=== PATIENT | female | born 1980 | race Caucasian/White ===

== ENCOUNTER 2016-06-06 23:08 | Emergency (ER) | payer SELFPAY ==
[~2016-06-06] VITALS: Ht 167.6 cm; Wt 83.0 kg
[2016-06-06 23:21] VITALS: BP 122/68
[2016-06-06] MEDS ORDERED: DEXAMETHASONE SOD PHOS 20 MG/5 ML VIAL. PO ONE (23:45)
[2016-06-06 23:51] LABS: NEG OBC UR NEG; POS OBC UR POS
[2016-06-06 23:59] LABS: BARBITURATES NEG (NEG); BENZODIAZEPINES NEG (NEG); CANNABINOIDS NEG (NEG); COCAINE NEG (NEG); METHADONE NEG (NEG); OPIATES NEG (NEG); PHENCYCLIDINE NEG (NEG)
[2016-06-07] LABS: ETHANOL, URINE NEG (NEG)
--- NOTE | 2016-06-07 00:11 | PHYS DOC ---
Past Medical History Past Medical History: Other Additional Past Medical Histor: EMPHYSEMA Past Surgical History: Tubal ligation Alcohol Use: Heavy Drug Use: Other Adult General Chief Complaint Chief Complaint: SORE THROAT HPI HPI Patient is a 35 year old female presents emergency room via EMS transport complaint of a sore throat for the past 2 hours. Patient denies injury. Patient denies any exposure to any new substances orally. Patient denies drug ingestion or recent alcohol ingestion. Patient denies any previous surgeries to her throat or problems with anaphylaxis. Patient states that she feels as if her tongue is swollen and she's having a hard time swallowing. She states that she was eating [employer] pizza when the symptoms initially began. Review of Systems Review of Systems Constitutional: Denies fever or chills [] Eyes: Denies change in visual acuity, redness, or eye pain [] HENT: Denies nasal congestion or sore throat [] Respiratory: Denies cough or shortness of breath [] Cardiovascular: No additional information not addressed in HPI [] GI: Denies abdominal pain, nausea, vomiting, bloody stools or diarrhea [] : Denies dysuria or hematuria [] Musculoskeletal: Denies back pain or joint pain [] Integument: Denies rash or skin lesions [] Neurologic: Denies headache, focal weakness or sensory changes [] Endocrine: Denies polyuria or polydipsia [] Current Medications Current Medications Current Medications Medications (Trade) Dose Ordered Sig/Casie Start Time Stop Time Status Last Admin Dose Admin Dexamethasone Sodium Phosphate (Decadron) 10 mg 1X ONCE 06/06/16 23:45 06/06/16 23:46 DC 06/06/16 23:45 10 MG Allergies Allergies Allergies Coded Allergies Type Severity Reaction Last Updated Verified No Known Drug Allergies 06/06/16 No Physical Exam Physical Exam Constitutional: Well developed, well nourished, no acute distress, non-toxic appearance. Patient's behavior is very erratic. She was posturing and squirming around on the examination table with some mild pressured speech but is somewhat nonsensical. She also demonstrates some loose associations with her train of thought in conversation. HENT: Normocephalic, atraumatic, bilateral external ears normal, oropharynx moist, no oral exudates, nose normal. There is no evidence of angioedema. Patient's tongue is not swollen. There is no trismus. Posterior oropharynx is normal in appearance with some mild cobblestoning. There is no peritonsillar swelling or uvular deviation. Patient has ample room air posterior oropharynx to control her secretions. Eyes: PERRLA, EOMI, conjunctiva normal, no discharge. [] Neck: Normal range of motion, no tenderness, supple, no stridor. Cardiovascular:Heart rate 98 with regular rhythm, no murmur. Lungs & Thorax: Bilateral breath sounds clear to auscultation [] Abdomen: Bowel sounds normal, soft, no tenderness, no masses, no pulsatile masses. [] Skin: Warm, dry, no erythema, no rash. [] Back: No tenderness, no CVA tenderness. [] Extremities: No tenderness, no cyanosis, no clubbing, ROM intact, no edema. [] Neurologic: Alert and oriented X 3, normal motor function, normal sensory function, no focal deficits noted. [] Psychologic: Affect normal, judgement normal, mood normal. [] Current Patient Data Vital Signs Vital Signs Date Time Temp Pulse Resp B/P Pulse Ox O2 Delivery O2 Flow Rate FiO2 06/06/16 23:21 97.9 98 18 99 Room Air 97.9 Lab Values Laboratory Tests Test 06/06/16 23:28 06/06/16 23:35 Urine Test Negative (NEG) Urine Opiates Screen Neg (NEG) Urine Methadone Screen Neg (NEG) Urine Barbiturates Neg (NEG) Urine Phencyclidine Screen Neg (NEG) Urine Amphetamine/Methamphetamine Pos (NEG) Urine Benzodiazepines Screen Neg (NEG) Urine Cocaine Screen Neg (NEG) Urine Cannabinoids Screen Neg (NEG) Urine Ethyl Alcohol Neg (NEG) EKG EKG [] Radiology/Procedures Radiology/Procedures [] Course & Med Decision Making Course & Med Decision Making Patient's rapid strep was negative. Patient's urine drug screen was positive for methamphetamines. test is negative. Patient received 10 mg of Decadron by mouth. Patient had slept in the examination room during periods of time similar. I woke the patient up to discuss her test results. Patient states that she had been around "family members or smoking meth" over the holiday season. Patient states that she did smoke meth in the past and absolutely denies methamphetamine use now. Patient was given phone so that she can call someone to get her a ride home, otherwise, she will receive a bus pass for a ride in the morning. Dragon Disclaimer Dragon Disclaimer This electronic medical record was generated, in whole or in part, using a voice recognition dictation system. Departure Departure Impression: Primary Impression: Sore throat Additional Impression: Methamphetamine use Disposition: 01 HOME, SELF-CARE Condition: STABLE Referrals: NO PCP (PCP) Patient Instructions: Methamphetamine Abuse, Complications, Sore Throat, Easy- to-Read Additional Instructions: 1. Strep test today is negative. You did test positive for methamphetamines. 2. No antibiotics are required at this time. 3. Review the discharge instructions for reasons to return to the emergency room. 4. Follow-up with a primary care doctor in the area in which he live if he have any concerns. Problem Qualifiers ASYA VEGA Jun 07, 2016 00:11
[2016-06-07 08:36] LABS: NEGATIVE OBC STREP NEG; POSITIVE OBC STREP POS
== END 2016-06-07 00:42 | disposition home or self-care (01) ==
LOC: ER 23:08
DX: J02.9 Acute pharyngitis, unspecified (principal); J43.9 Emphysema, unspecified; F15.90 Other stimulant use, unspecified, uncomplicated; Z98.51 Tubal ligation status
CPT/HCPCS: 81025; 87070; 87880; 99284; G0481; J1100

== ENCOUNTER 2018-05-01 13:41 | Emergency (ER) | payer SELFPAY ==
[~2018-05-01] VITALS: Ht 170.2 cm; Wt 93.4 kg
[2018-05-01] MEDS ORDERED: IV NORMAL SALINE 1000ML BAG 1,000 ML IV SCH (15:06)
[2018-05-01] MEDS ORDERED: IPRATRPIUM/ALBUTEROL 0.5/2.5MG 3 ML NEBU. NEB ONE (15:15)
[2018-05-01] MEDS ORDERED: IOHEXOL 300 MG/ML 100ML VIAL. IV ONE (15:15)
[2018-05-01 15:25] LABS: BASO % 0 % (0-3); EOS % 0 % (0-3); HEMATOCRIT 44.6 % (36.0-47.0); HEMOGLOBIN 15.2 g/dL (12.0-15.5); LYMPH # 0.9 x10^3/uL (1.0-4.8); LYMPH % 14 % (24-48); MEAN CORPUSCULAR HEMOGLOBIN 31 pg (25-35); MEAN CORPUSCULAR HGB CONC 34 g/dL (31-37); MEAN CORPUSCULAR VOLUME 91 fL (79-100); MONO % 15 % (0-9); NEUT # 4.8 x10^3uL (1.8-7.7); NEUT % 71 % (31-73); PLATELET COUNT 284 x10^3/uL (140-400); RED BLOOD COUNT 4.91 x10^6/uL (3.50-5.40); WHITE BLOOD COUNT 6.8 x10^3/uL (4.0-11.0)
[2018-05-01] MEDS ORDERED: CONTRAST GIVEN. MC PRN (15:30)
--- NOTE | 2018-05-01 15:34 | RAD ---
Portable chest, 05/01/2018: HISTORY: Cough, shortness of breath Comparison is made to a study from 07/11/2003. The left hemidiaphragm is slightly elevated. The heart size and pulmonary vascularity are normal. No pulmonary infiltrate is seen. There is no evidence of pleural fluid. IMPRESSION: 1. Slight elevation of the left hemidiaphragm. 2. No acute infiltrates. Electronically signed by: Gennaro Hernandez MD (05/01/2018 3:31 PM) [facility]
[2018-05-01 15:35] LABS: PROTHROMBIN TIME PATIENT 13.1 SEC (11.7-14.0)
--- NOTE | 2018-05-01 15:37 | PHYS DOC ---
Past Medical History Past Medical History: Asthma, COPD, Other Additional Past Medical Histor: EMPHYSEMA Past Surgical History: Tubal ligation Alcohol Use: Sober Drug Use: Other Social History Narrative: "sober" Adult General Chief Complaint Chief Complaint: SHORTNESS OF BREATH HPI HPI Patient is a 37-year-old female who presents to the emergency department for evaluation of increased shortness of breath. She states it has been going on for the past 2 days. She reports bilateral pleuritic pain, and has had a dry nonproductive cough, worsened with deep breathing. She does have a history of COPD but has not had any wheezing. She has not had any hemoptysis or exertional chest pain, fevers or chills. There are no alleviating or exacerbating factors to the patient's symptoms except as noted above. Review of Systems Review of Systems Constitutional: Denies fever or chills [] Eyes: Denies change in visual acuity, redness, or eye pain [] HENT: Denies nasal congestion or sore throat [] Respiratory: No additional information not addressed in HPI [] Cardiovascular: No additional information not addressed in HPI [] GI: Denies abdominal pain, nausea, vomiting, bloody stools or diarrhea [] : Denies dysuria or hematuria [] Musculoskeletal: Denies back pain or joint pain [] Integument: Denies rash or skin lesions [] Neurologic: Denies headache, focal weakness or sensory changes [] Endocrine: Denies polyuria or polydipsia [] All other systems were reviewed and found to be within normal limits, except as documented in this note. Current Medications Current Medications Current Medications Medications (Trade) Dose Ordered Sig/Casie Start Time Stop Time Status Last Admin Dose Admin Albuterol/ Ipratropium (Duoneb) 3 ml 1X ONCE 05/01/18 15:15 05/01/18 15:16 DC 05/01/18 15:23 3 ML Info (CONTRAST GIVEN -- Rx MONITORING) 1 each PRN DAILY PRN 05/01/18 15:30 05/03/18 15:29 Iohexol (Omnipaque 300 Mg/ml) 75 ml 1X ONCE 05/01/18 15:15 05/01/18 15:16 DC Sodium Chloride 1,000 ml @ 1,000 mls/hr Q1H 05/01/18 15:06 05/01/18 16:05 DC 05/01/18 16:25 1,000 MLS/HR Allergies Allergies Allergies Coded Allergies Type Severity Reaction Last Updated Verified No Known Drug Allergies 06/06/16 No Physical Exam Physical Exam PHYSICAL EXAM: CONSTITUTIONAL: Well developed, well nourished HEAD: normocephalic, atraumatic EENT: PERRL, EOMI. Conjunctivae normal color, sclerae non-icteric; moist mucous membranes. NECK: Supple, non-tender; no meningismus. LUNGS: Lungs CTA, breathing even and unlabored. Normal air movement. HEART: Regular rhythm, mild tachycardia, no murmur CHEST: No deformity; non-tender ABDOMEN: The abdomen is soft, and non-tender, no masses or bruits. EXTREM: Normal ROM; no deformity, no calf tenderness. Normal pulses palpable in all extremities. There is no pedal edema. SKIN: No rash; no diaphoresis NEURO: Alert; normal speech and cognition; CN's grossly intact; strength grossly intact without focal deficit. BACK: No CVA TTP. Current Patient Data Vital Signs Vital Signs Date Time Temp Pulse Resp B/P (MAP) Pulse Ox O2 Delivery O2 Flow Rate FiO2 05/01/18 20:00 92 22 141/93 (109) 98 Room Air 05/01/18 14:20 99.0 99.0 Lab Values Laboratory Tests Test 05/01/18 14:55 05/01/18 15:10 Urine Opiates Screen Neg (NEG) Urine Methadone Screen Neg (NEG) Urine Barbiturates Neg (NEG) Urine Phencyclidine Screen Neg (NEG) Urine Amphetamine/Methamphetamine Neg (NEG) Urine Benzodiazepines Screen Neg (NEG) Urine Cocaine Screen Neg (NEG) Urine Cannabinoids Screen Neg (NEG) Urine Ethyl Alcohol Neg (NEG) White Blood Count 6.8 x10^3/uL (4.0-11.0) Red Blood Count 4.91 x10^6/uL (3.50-5.40) Hemoglobin 15.2 g/dL (12.0-15.5) Hematocrit 44.6 % (36.0-47.0) Mean Corpuscular Volume 91 fL (79-100) Mean Corpuscular Hemoglobin 31 pg (25-35) Mean Corpuscular Hemoglobin Concent 34 g/dL (31-37) Red Cell Distribution Width 13.0 % (11.5-14.5) Platelet Count 284 x10^3/uL (140-400) Neutrophils (%) (Auto) 71 % (31-73) Lymphocytes (%) (Auto) 14 % (24-48) L Monocytes (%) (Auto) 15 % (0-9) H Eosinophils (%) (Auto) 0 % (0-3) Basophils (%) (Auto) 0 % (0-3) Neutrophils # (Auto) 4.8 x10^3uL (1.8-7.7) Lymphocytes # (Auto) 0.9 x10^3/uL (1.0-4.8) L Monocytes # (Auto) 1.0 x10^3/uL (0.0-1.1) Eosinophils # (Auto) 0.0 x10^3/uL (0.0-0.7) Basophils # (Auto) 0.0 x10^3/uL (0.0-0.2) Prothrombin Time 13.1 SEC (11.7-14.0) Prothrombin Time INR 1.0 (0.8-1.1) D-Dimer (Anna) 0.97 ug/mlFEU (0.00-0.50) H Sodium Level 139 mmol/L (136-145) Potassium Level 3.3 mmol/L (3.5-5.1) L Chloride Level 103 mmol/L (98-107) Carbon Dioxide Level 21 mmol/L (21-32) Anion Gap 15 (6-14) H Blood Urea Nitrogen 12 mg/dL (7-20) Creatinine 1.2 mg/dL (0.6-1.0) H Estimated GFR (Cockcroft-Gault) 50.6 BUN/Creatinine Ratio 10 (6-20) Glucose Level 120 mg/dL (70-99) H Calcium Level 9.3 mg/dL (8.5-10.1) Total Bilirubin 0.2 mg/dL (0.2-1.0) Aspartate Amino Transferase (AST) 40 U/L (15-37) H Alanine Aminotransferase (ALT) 28 U/L (14-59) Alkaline Phosphatase 77 U/L (46-116) Creatine Kinase 482 U/L (26-192) H Creatine Kinase MB (Mass) 2.3 ng/mL (0.0-3.6) Creatine Kinase MB Relative Index 0.5 % (0-4) Troponin I Quantitative < 0.017 ng/mL (0.000-0.055) XK-Imb-J-Type Natriuretic Peptide 71 pg/mL (0-124) Total Protein 7.9 g/dL (6.4-8.2) Albumin 3.6 g/dL (3.4-5.0) Albumin/Globulin Ratio 0.8 (1.0-1.7) L Lipase 156 U/L (73-393) Laboratory Tests 05/01/18 15:10 Laboratory Tests 05/01/18 15:10 EKG EKG [Sinus tachycardia rate of 102 beats for minute, normal axis, normal intervals, nonspecific ST/T changes. There are no old EKGs available for comparison.] Radiology/Procedures Radiology/Procedures [PROCEDURE: PORTABLE CHEST 1V Portable chest, 05/01/2018: HISTORY: Cough, shortness of breath Comparison is made to a study from 07/11/2003. The left hemidiaphragm is slightly elevated. The heart size and pulmonary vascularity are normal. No pulmonary infiltrate is seen. There is no evidence of pleural fluid. IMPRESSION: 1. Slight elevation of the left hemidiaphragm. 2. No acute infiltrates.] PROCEDURE: CT ANGIOGRAPHY CHEST PQRS Compliance Statement: One or more of the following individualized dose reduction techniques were utilized for this examination: 1. Automated exposure control 2. Adjustment of the mA and/or kV according to patient size 3. Use of iterative reconstruction technique CT CHEST WITH CONTRAST, PULMONARY ANGIOGRAM History: Shortness of air, suddenly last night. Uncontrolled cough. Comparison: None. Technique: Helical CT of the chest was performed after the administration of 60 cc Omnipaque 300 intravenous contrast according to PE protocol. Axial and coronal reconstructions were obtained. 3-D MIP images were constructed to better evaluate the pulmonary arteries. Findings: Pulmonary arteries are adequately opacified to the lobar pulmonary artery level. There is no evidence of pulmonary embolism. Segmental and subsegmental pulmonary arteries cannot be accurately evaluated. Thyroid is symmetric. There is no thoracic aortic dissection. The great vessels are normal caliber. There are a few tiny bubbles of air right posterior lateral to the upper trachea, for example sagittal image 63 and coronal image 55. There are mildly enlarged left hilar lymph nodes. There are 2 nonpathologically enlarged mediastinal lymph nodes. Cardiac size normal, no pericardial effusion. There is respiratory motion artifact that limits evaluation. There is no pleural abnormality. Central airways are patent. The right lung is clear. There are mild reticular nodular opacities in the left lower lobe. There are a few groundglass nodules in the left lower lobe, for example image 87. No lung consolidation. Calcified granuloma lateral left lower lobe. Calcified granulomas in the spleen. Cortical scarring in the upper poles of the kidneys. No compression fracture in the thoracic spine. Multilevel Schmorl's nodes. IMPRESSION: 1. There is no CT evidence of pulmonary embolus to the lobar pulmonary artery level. 2. There are mild reticular nodular opacities and a few groundglass nodules in the left lower lobe most suggestive of infectious/inflammatory process. 3. Mild left hilar adenopathy is probably reactive. 4. Tiny bubbles of air posterior lateral to the upper trachea. Considerations include unexplained subcutaneous air versus air in a tracheal or esophageal diverticulum. PROCEDURE: LUNG VENT/PERFUSION SCAN(VQ) Medicine ventilation perfusion scan HISTORY: 2 days of dyspnea and a history of COPD and cough 6.0 mCi of technetium 99m MAA was administered intravenously and spot views were obtained with gamma camera for a nuclear medicine perfusion study. 12.0 mCi of xenon and 133 was administered as a gas and spot views were obtained with a gamma camera for a perfusion examination. There is homogeneous ventilation and perfusion. IMPRESSION: Low probability for pulmonary embolism based on modified PIOPED criteria. Electronically signed by: Lalo Santoro III, MD (05/01/2018 9:01 PM) [facility] Course & Med Decision Making Course & Med Decision Making Pertinent Labs and Imaging studies reviewed. (See chart for details) [6:30 PM: The patient's condition remains stable. Given her elevated d-dimer and relatively clear lungs, and tachycardia on presentation, the possibility of pulmonary embolism needs to be definitively ruled out. Unfortunately, her CT scan was nondiagnostic due to poor contrast bolus timing. I did review the images and discussed the case with the radiologist. Given the patient's mildly decreased GFR, was felt that a VQ scan was a better imaging modality for repeat imaging as opposed to a repeat CT endocrine. This will be obtained. Care will be turned over to Dr. Parkinson, pending final disposition after V/Q scanning, which has been requested.] 1830- Sign out received from Dr. Cortes for patient with elevated d-dimer with CTA findings that were inconclusive. EKG stable. Troponin also WNL. Patient pending VQ scan. Patient seen and evaluated by myself. Physical Exam: CONSTITUTIONAL: Well developed, well nourished, no acute distress HEAD: normocephalic, atraumatic EENT: Conjunctivae normal color, oropharynx moist LUNGS: Lungs CTAB, no wheezing rhonchi or rails HEART: Regular rhythm and rate NEURO: Alert and oriented, normal speech 2119- VQ scan low probability for PE. More likely secondary to patient's respiratory issues. Symptomatic steroid and albuterol MDI prescribed. Patient stable for discharge with outpatient follow-up with PCP. Discussed findings and plan with patient and family, who acknowledge understanding and agreement. Dragon Disclaimer Dragon Disclaimer This electronic medical record was generated, in whole or in part, using a voice recognition dictation system. Departure Departure Impression: Primary Impression: Dyspnea Additional Impressions: History of COPD Elevated d-dimer Disposition: HOME, SELF-CARE Condition: STABLE Referrals: NO PCP (PCP) YSABEL ALEJANDRA MD, SABATO MD Patient Instructions: Chest Pain (Nonspecific), Fcav-dy-Torc, Chronic Asthmatic Bronchitis Scripts Albuterol Sulfate (PROAIR HFA INHALER) 8.5 Gm Hfa.aer.ad 1 PUFF INH PRN Q6HRS PRN for SHORTNESS OF BREATH, #1 INHALER 0 Refills Prov: JUANITA PARKINSON DO 05/01/18 Prednisone (PREDNISONE) 20 Mg Tablet 2 TAB PO DAILY, #10 TAB Prov: JUANITA PARKINSON DO 05/01/18 Problem Qualifiers ANNA CORTES MD May 01, 2018 15:37 JUANITA PARKINSON DO May 01, 2018 21:15
[2018-05-01 15:38] LABS: AMPHETAMINE/METHAMPHETAMINE NEG (NEG); BARBITURATES NEG (NEG); BENZODIAZEPINES NEG (NEG); CANNABINOIDS NEG (NEG); COCAINE NEG (NEG); METHADONE NEG (NEG); OPIATES NEG (NEG); PHENCYCLIDINE NEG (NEG)
[2018-05-01 15:41] LABS: CALCIUM 9.3 mg/dL (8.5-10.1); CREATININE 1.2 mg/dL (0.6-1.0); GFR 50.6; POTASSIUM 3.3 mmol/L (3.5-5.1)
[2018-05-01 15:47] LABS: ALBUMIN 3.6 g/dL (3.4-5.0); ALBUMIN/GLOBULIN RATIO 0.8 (1.0-1.7); TOTAL BILIRUBIN 0.2 mg/dL (0.2-1.0); TOTAL PROTEIN 7.9 g/dL (6.4-8.2)
--- NOTE | 2018-05-01 15:58 | EKG ---
[facility] [address] [place] [address] Test Date: 2018-05-01 Test Time: 15:49:25 Pat Name: KRISTAL WHITNEY Department: Room: Gender: F Document Imaging Manager: KRISTAL WHITNEY : 1980 Requested By: ANNA LEA Order Number: [id number] Reading MD: Jose Aguirre MD Measurements Intervals [place] Rate: 102 P: 38 [place]: 124 QRS: 18 QRSD: 72 T: 0 QT: 324 QTc: 426 Interpretive Statements SINUS TACHYCARDIA Electronically Signed On 05-06-2018 8:20:32 TOOLER by Jose Aguirre MD
--- NOTE | 2018-05-01 16:48 | RAD ---
PQRS Compliance Statement: One or more of the following individualized dose reduction techniques were utilized for this examination: 1. Automated exposure control 2. Adjustment of the mA and/or kV according to patient size 3. Use of iterative reconstruction technique CT CHEST WITH CONTRAST, PULMONARY ANGIOGRAM History: Shortness of air, suddenly last night. Uncontrolled cough. Comparison: None. Technique: Helical CT of the chest was performed after the administration of 60 cc Omnipaque 300 intravenous contrast according to PE protocol. Axial and coronal reconstructions were obtained. 3-D MIP images were constructed to better evaluate the pulmonary arteries. Findings: Pulmonary arteries are adequately opacified to the lobar pulmonary artery level. There is no evidence of pulmonary embolism. Segmental and subsegmental pulmonary arteries cannot be accurately evaluated. Thyroid is symmetric. There is no thoracic aortic dissection. The great vessels are normal caliber. There are a few tiny bubbles of air right posterior lateral to the upper trachea, for example sagittal image 63 and coronal image 55. There are mildly enlarged left hilar lymph nodes. There are 2 nonpathologically enlarged mediastinal lymph nodes. Cardiac size normal, no pericardial effusion. There is respiratory motion artifact that limits evaluation. There is no pleural abnormality. Central airways are patent. The right lung is clear. There are mild reticular nodular opacities in the left lower lobe. There are a few groundglass nodules in the left lower lobe, for example image 87. No lung consolidation. Calcified granuloma lateral left lower lobe. Calcified granulomas in the spleen. Cortical scarring in the upper poles of the kidneys. No compression fracture in the thoracic spine. Multilevel Schmorl's nodes. IMPRESSION: 1. There is no CT evidence of pulmonary embolus to the lobar pulmonary artery level. 2. There are mild reticular nodular opacities and a few groundglass nodules in the left lower lobe most suggestive of infectious/inflammatory process. 3. Mild left hilar adenopathy is probably reactive. 4. Tiny bubbles of air posterior lateral to the upper trachea. Considerations include unexplained subcutaneous air versus air in a tracheal or esophageal diverticulum. Electronically signed by: Rich Heaton MD (05/01/2018 4:44 PM) [id number]
[2018-05-01 20:00] VITALS: BP 141/93
--- NOTE | 2018-05-01 21:05 | RAD ---
Medicine ventilation perfusion scan HISTORY: 2 days of dyspnea and a history of COPD and cough 6.0 mCi of technetium 99m MAA was administered intravenously and spot views were obtained with gamma camera for a nuclear medicine perfusion study. 12.0 mCi of xenon and 133 was administered as a gas and spot views were obtained with a gamma camera for a perfusion examination. There is homogeneous ventilation and perfusion. IMPRESSION: Low probability for pulmonary embolism based on modified PIOPED criteria. Electronically signed by: Lalo Santoro III, MD (05/01/2018 9:01 PM) [facility]
[2018-05-01] MEDS ORDERED: PROAIR HFA8.5 GM INH (21:19)
[2018-05-01] MEDS ORDERED: PRED20TA PO (21:19)
== END 2018-05-01 21:40 | disposition home or self-care (01) ==
LOC: ER 13:41
DX: R06.00 Dyspnea, unspecified (principal); R79.1 Abnormal coagulation profile; R06.02 Shortness of breath; R05 Cough; R07.81 Pleurodynia; R00.0 Tachycardia, unspecified; J44.9 Chronic obstructive pulmonary disease, unspecified; Z98.51 Tubal ligation status
CPT/HCPCS: 36415; 71045; 71275; 78582; 80053; 80307; 82553; 83690; 83880; 84484; 85025; 85379; 85610; 93005; 94640; 99284; A9540; A9558; J7030; J7620; 96374

== ENCOUNTER 2018-11-09 17:22 | Emergency (ER) | payer SELFPAY ==
[~2018-11-09] VITALS: Ht 170.2 cm; Wt 82.1 kg
[~2018-11-09 17:22] MED LIST: ALBU2.5V8 INH; PRED20TA PO
[2018-11-09] MEDS ORDERED: IV NORMAL SALINE 1000ML BAG 1,000 ML IV ONE (18:00)
[2018-11-09 18:06] LABS: BASO % 1 % (0-3); EOS # 0.2 x10^3/uL (0.0-0.7); EOS % 3 % (0-3); HEMATOCRIT 40.8 % (36.0-47.0); HEMOGLOBIN 14.1 g/dL (12.0-15.5); LYMPH # 2.1 x10^3/uL (1.0-4.8); LYMPH % 30 % (24-48); MEAN CORPUSCULAR HEMOGLOBIN 31 pg (25-35); MEAN CORPUSCULAR HGB CONC 35 g/dL (31-37); MEAN CORPUSCULAR VOLUME 91 fL (79-100); MONO % 14 % (0-9); NEUT # 3.6 x10^3uL (1.8-7.7); NEUT % 52 % (31-73); PLATELET COUNT 304 x10^3/uL (140-400); RED CELL DISTRIBUTION WIDTH 14.7 % (11.5-14.5)
[2018-11-09 18:07] LABS: BILIRUBIN,URINE SMALL (NEG); CLARITY,URINE CLEAR; COLOR,URINE YELLOW; NITRITE,URINE NEGATIVE (NEG); PROTEIN,URINE 30 mg/dL (NEG-TRACE)
--- NOTE | 2018-11-09 18:07 | PHYS DOC ---
Past Medical History Past Medical History: Asthma, COPD, Other Additional Past Medical Histor: EMPHYSEMA (KADY DA SILVA APRN) Past Surgical History: Tubal ligation (KADY DA SILVA APRN) Additional Information: 06/05 ppd Alcohol Use: Sober Drug Use: Other Social History Narrative: K2 usage (KADY DA SILVA APRN) Adult General Chief Complaint Chief Complaint: DIZZY/LIGHT HEADED HPI HPI 38-year-old female presents to ER via POV for complaints of dizziness and lightheadedness. Patient reports symptoms started last night she had episode where she was lightheaded and woke up on the ground stating nobody was with her at the time. Patient is denying headache or head/neck pain. Patient reports she smoked K2 a few days ago and has had intermittent lightheadedness. Patient reports she's had decreased appetite as well. Friend at bedside said she does drink multiple monsters as well daily. Patient is anxious during initial exam and has rapid breathing. With redirection on respiratory effort patient was able to slow her breathing reporting symptoms improved. Patient reports she was able to go to bed last night slept fine had no issues today as far as further syncope episodes. Patient reports she has eaten today denies nausea or vomiting. Patient states she has had some dysuria denies hematuria or fever. Patient denies any recent alcohol. Patient denies other illicit drug use. Patient states she is a daily smoker of cigarettes. (KADY DA SILVA APRN) Review of Systems Review of Systems Constitutional: Denies fever or chills [] Eyes: Denies change in visual acuity, redness, or eye pain [] HENT: Denies nasal congestion or sore throat [] Respiratory: Denies cough or shortness of breath [] Cardiovascular: Reports mid chest tightness GI: Denies abdominal pain, nausea, vomiting, bloody stools or diarrhea [] : Denies hematuria. Reports dysuria Musculoskeletal: Denies back/neck pain or joint pain [] Integument: Denies rash or skin lesions [] Neurologic: Denies headache, focal weakness or sensory changes. Reports lightheadedness/dizziness All other systems were reviewed and found to be within normal limits, except as documented in this note. (KADY DA SILVA APRN) Current Medications Current Medications Current Medications Medications (Trade) Dose Ordered Sig/Casie Start Time Stop Time Status Last Admin Dose Admin Sodium Chloride 1,000 ml @ 1,000 mls/hr 1X ONCE 11/09/18 18:00 11/09/18 18:59 DC 11/09/18 18:05 1,000 MLS/HR (RIGOBERTO GARCIA DO) Allergies Allergies Allergies Coded Allergies Type Severity Reaction Last Updated Verified No Known Drug Allergies 06/06/16 No (RIGOBERTO GARCIA DO) Physical Exam Physical Exam Constitutional: Well developed, well nourished, no acute distress, non-toxic appearance. [] HENT: Normocephalic, atraumatic, bilateral external ears normal, oropharynx moist, no oral exudates, nose normal. [] Eyes: PERRLA, EOMI, conjunctiva normal, no discharge. [] Neck: Normal range of motion, no tenderness, supple, no stridor. [] Cardiovascular:Heart rate regular rhythm, no murmur [] Lungs & Thorax: Bilateral breath sounds clear to auscultation [] Abdomen: Bowel sounds normal, soft, no tenderness, no masses, no pulsatile masses. [] Skin: Warm, dry, no erythema, no rash. [] Back: No tenderness, no CVA tenderness. [] Extremities: No tenderness, no cyanosis, no clubbing, ROM intact, no edema. [] Neurologic: Alert and oriented X 3, normal motor function, normal sensory function, no focal deficits noted. [] Psychologic: Affect normal, judgement normal, mood normal. [] (REFFITT,KADY Yadav APRN) Current Patient Data Vital Signs Vital Signs Date Time Temp Pulse Resp B/P (MAP) Pulse Ox O2 Delivery O2 Flow Rate FiO2 11/09/18 17:30 98.2 74 20 149/82 (104) 98 Room Air 98.2 (RIGOBERTO GARCIA DO) Lab Values Laboratory Tests Test 11/09/18 17:32 11/09/18 17:38 11/09/18 17:55 11/09/18 17:58 Glucose (Fingerstick) 94 mg/dL (70-99) White Blood Count 7.0 x10^3/uL (4.0-11.0) Red Blood Count 4.50 x10^6/uL (3.50-5.40) Hemoglobin 14.1 g/dL (12.0-15.5) Hematocrit 40.8 % (36.0-47.0) Mean Corpuscular Volume 91 fL (79-100) Mean Corpuscular Hemoglobin 31 pg (25-35) Mean Corpuscular Hemoglobin Concent 35 g/dL (31-37) Red Cell Distribution Width 14.7 % (11.5-14.5) H Platelet Count 304 x10^3/uL (140-400) Neutrophils (%) (Auto) 52 % (31-73) Lymphocytes (%) (Auto) 30 % (24-48) Monocytes (%) (Auto) 14 % (0-9) H Eosinophils (%) (Auto) 3 % (0-3) Basophils (%) (Auto) 1 % (0-3) Neutrophils # (Auto) 3.6 x10^3uL (1.8-7.7) Lymphocytes # (Auto) 2.1 x10^3/uL (1.0-4.8) Monocytes # (Auto) 1.0 x10^3/uL (0.0-1.1) Eosinophils # (Auto) 0.2 x10^3/uL (0.0-0.7) Basophils # (Auto) 0.0 x10^3/uL (0.0-0.2) Sodium Level 140 mmol/L (136-145) Potassium Level 3.2 mmol/L (3.5-5.1) L Chloride Level 102 mmol/L (98-107) Carbon Dioxide Level 26 mmol/L (21-32) Anion Gap 12 (6-14) Blood Urea Nitrogen 16 mg/dL (7-20) Creatinine 0.9 mg/dL (0.6-1.0) Estimated GFR (Cockcroft-Gault) 70.1 BUN/Creatinine Ratio 18 (6-20) Glucose Level 94 mg/dL (70-99) Calcium Level 9.7 mg/dL (8.5-10.1) Total Bilirubin 0.3 mg/dL (0.2-1.0) Aspartate Amino Transferase (AST) 26 U/L (15-37) Alanine Aminotransferase (ALT) 25 U/L (14-59) Alkaline Phosphatase 82 U/L (46-116) Troponin I Quantitative < 0.017 ng/mL (0.000-0.055) Total Protein 8.0 g/dL (6.4-8.2) Albumin 3.9 g/dL (3.4-5.0) Albumin/Globulin Ratio 1.0 (1.0-1.7) Ethyl Alcohol Level < 10 mg/dL (0-10) Urine Collection Type Void Urine Color Yellow Urine Clarity Clear Urine pH 6.0 Urine Specific [place] 1.025 Urine Protein 30 mg/dL (NEG-TRACE) Urine Glucose (UA) Negative mg/dL (NEG) Urine Ketones (Stick) Negative mg/dL (NEG) Urine Blood Moderate (NEG) Urine Nitrite Negative (NEG) Urine Bilirubin Small (NEG) Urine Urobilinogen Dipstick 1.0 mg/dL (0.2 mg/dL) Urine Leukocyte Esterase Moderate (NEG) Urine RBC 3-5 /HPF (0-2) Urine WBC >40 /HPF (0-4) Urine Squamous Epithelial Cells Few /LPF Urine Bacteria Moderate /HPF (0-FEW) Urine Mucus Mod /LPF Urine Opiates Screen Neg (NEG) Urine Methadone Screen Neg (NEG) Urine Barbiturates Neg (NEG) Urine Phencyclidine Screen Neg (NEG) Urine Amphetamine/Methamphetamine Neg (NEG) Urine Benzodiazepines Screen Neg (NEG) Urine Cocaine Screen Neg (NEG) Urine Cannabinoids Screen Neg (NEG) Urine Ethyl Alcohol Neg (NEG) POC Urine HCG, Qualitative Hcg negative (Negative) Laboratory Tests 11/09/18 17:38 Laboratory Tests 11/09/18 17:38 (RIGOBERTO GARCIA DO) EKG EKG EKG obtained 11/09/18 at 1731 Interpreted by ER physician Sinus rhythm Rate 69 No STEMI (KADY DA SILVA APRN) Radiology/Procedures Radiology/Procedures [] (KADY DA SILVA APRN) Course & Med Decision Making Course & Med Decision Making Pertinent Labs and Imaging studies reviewed. (See chart for details) 1815: Discussed patient's case and pending test results with Dr. Garcia who will assume care of pt for further care and disposition. Patient is currently receiving IV fluids. (AKDY DA SILVA APRN) Dragon Disclaimer Dragon Disclaimer This electronic medical record was generated, in whole or in part, using a voice recognition dictation system. (KADY DA SILVA APRN) Departure Departure Impression: Primary Impression: Drug use Additional Impressions: Dizziness Chest pain Anxiety Urinary tract infection Disposition: HOME, SELF-CARE Condition: IMPROVED Referrals: NO PCP (PCP) Patient Instructions: Anxiety and Panic Attacks, Chest Pain (Nonspecific), Dizziness, Drug Abuse and Addiction-SportsMed, Urinary Tract Infection Additional Instructions: Return to the emergency department with any new or concerning symptoms. It is very important that you take your antibiotics for the urinary tract infection Scripts Ciprofloxacin Hcl (CIPRO) 500 Mg Tablet 1 TAB PO BID PRN for UTI, #10 TAB Prov: RIGOBERTO GARCIA DO 11/09/18 Problem Qualifiers Additional Impressions: Chest pain Chest pain type: unspecified Qualified Codes: R07.9 - Chest pain, unspecified Urinary tract infection Urinary tract infection type: site unspecified Hematuria presence: without hematuria Qualified Codes: N39.0 - Urinary tract infection, site not spe cified KADY DA SILVA APRN Nov 09, 2018 18:07 RIGOBERTO GARCIA DO Nov 09, 2018 20:19
[2018-11-09 18:22] LABS: CALCIUM 9.7 mg/dL (8.5-10.1); CREATININE 0.9 mg/dL (0.6-1.0); GFR 70.1; POTASSIUM 3.2 mmol/L (3.5-5.1)
[2018-11-09 18:24] LABS: BARBITURATES NEG (NEG); BENZODIAZEPINES NEG (NEG); CANNABINOIDS NEG (NEG); COCAINE NEG (NEG); METHADONE NEG (NEG); OPIATES NEG (NEG); PHENCYCLIDINE NEG (NEG)
[2018-11-09 18:26] LABS: AMPHETAMINE/METHAMPHETAMINE NEG (NEG); BACTERIA,URINE MODERATE /HPF (0-FEW); SQUAMOUS EPITHELIAL CELL,UR FEW /LPF; WBC,URINE >40 /HPF (0-4)
[2018-11-09 18:28] LABS: ALBUMIN 3.9 g/dL (3.4-5.0); TOTAL BILIRUBIN 0.3 mg/dL (0.2-1.0)
[2018-11-09] MEDS ORDERED: CIPR500T94 PO (20:19)
[2018-11-09 20:24] VITALS: BP 132/90
--- NOTE | 2018-11-09 20:52 | RAD ---
AP chest x-ray HISTORY: Chest pain. FINDINGS: Patient is mildly rotated to the right. Heart size normal. Mediastinal silhouette is normal. No pneumothorax, pulmonary opacities or pleural effusions. Bones are unremarkable. IMPRESSION: No acute process. Electronically signed by: Erik Long MD (11/09/2018 8:49 PM) [facility]
--- NOTE | 2018-11-11 06:38 | EKG ---
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
== END 2018-11-09 20:36 | disposition home or self-care (01) ==
LOC: ER 17:22
DX: F12.10 Cannabis abuse, uncomplicated (principal); R42 Dizziness and giddiness; N39.0 Urinary tract infection, site not specified; F41.9 Anxiety disorder, unspecified; R07.89 Other chest pain; J43.9 Emphysema, unspecified; F17.210 Nicotine dependence, cigarettes, uncomplicated
CPT/HCPCS: 36415; 71045; 80053; 80307; 81001; 81025; 82962; 84484; 85025; 87086; 93005; 96360; 96361; 99285; G0480; J7030

== ENCOUNTER 2019-09-19 09:47 | Emergency (ER) | payer SELFPAY ==
[~2019-09-19] VITALS: Ht 170.2 cm; Wt 98.0 kg
[~2019-09-19 09:47] MED LIST changes: +CIPR500T94 PO
[2019-09-19 10:30] LABS: BILIRUBIN,URINE NEGATIVE (NEG); CLARITY,URINE CLEAR; COLOR,URINE YELLOW; NITRITE,URINE NEGATIVE (NEG); PROTEIN,URINE 100 mg/dL (NEG-TRACE); UROBILINOGEN,URINE 0.2 mg/dL (0.2 mg/dL)
[2019-09-19 10:34] LABS: CALCIUM 8.9 mg/dL (8.5-10.1); CREATININE 1.1 mg/dL (0.6-1.0); GFR 55.3; POTASSIUM 3.2 mmol/L (3.5-5.1)
[2019-09-19 10:37] LABS: BASO % 0 % (0-3); EOS # 0.2 x10^3/uL (0.0-0.7); EOS % 2 % (0-3); HEMATOCRIT 40.6 % (36.0-47.0); HEMOGLOBIN 13.6 g/dL (12.0-15.5); LYMPH # 1.9 x10^3/uL (1.0-4.8); LYMPH % 17 % (24-48); MEAN CORPUSCULAR HEMOGLOBIN 31 pg (25-35); MEAN CORPUSCULAR HGB CONC 34 g/dL (31-37); MEAN CORPUSCULAR VOLUME 92 fL (79-100); MONO # 0.6 x10^3/uL (0.0-1.1); MONO % 6 % (0-9); NEUT # 8.2 x10^3/uL (1.8-7.7); NEUT % 75 % (31-73); PLATELET COUNT 290 x10^3/uL (140-400); RED CELL DISTRIBUTION WIDTH 13.3 % (11.5-14.5); WHITE BLOOD COUNT 10.9 x10^3/uL (4.0-11.0)
[2019-09-19 10:38] LABS: ALBUMIN 3.4 g/dL (3.4-5.0); ALBUMIN/GLOBULIN RATIO 0.9 (1.0-1.7); MAGNESIUM 1.7 mg/dL (1.8-2.4); TOTAL BILIRUBIN 0.3 mg/dL (0.2-1.0); TOTAL PROTEIN 7.4 g/dL (6.4-8.2)
[2019-09-19 10:38] LABS: BARBITURATES NEG (NEG); BENZODIAZEPINES NEG (NEG); CANNABINOIDS NEG (NEG); COCAINE NEG (NEG); METHADONE NEG (NEG); OPIATES NEG (NEG); PHENCYCLIDINE NEG (NEG)
[2019-09-19 10:42] LABS: AMPHETAMINE/METHAMPHETAMINE NEG (NEG)
[2019-09-19 10:45] LABS: PROTHROMBIN TIME PATIENT 13.6 SEC (11.7-14.0)
[2019-09-19 10:52] LABS: BACTERIA,URINE FEW /HPF (0-FEW); RBC,URINE 0 /HPF (0-2); SQUAMOUS EPITHELIAL CELL,UR MANY /LPF; WBC,URINE 0 /HPF (0-4)
[2019-09-19 10:53] LABS: HYALINE CASTS, URINE FEW /HPF
--- NOTE | 2019-09-19 10:58 | EKG ---
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
--- NOTE | 2019-09-19 11:11 | RAD ---
EXAM: CT HEAD WITHOUT CONTRAST. HISTORY: Altered mental status. TECHNIQUE: Computed tomography of the head was performed without intravenous contrast. One or more of the following individualized dose reduction techniques were utilized for this examination: 1. Automated exposure control. 2. Adjustment of the mA and/or kV according to patient size. 3. Use of iterative reconstruction technique. COMPARISON: None. FINDINGS: There is no intracranial hemorrhage. Guzmán-white differentiation is preserved. The ventricles are normal in size and position. The visualized paranasal sinuses appear clear. The orbits are unremarkable. The temporal bones are unremarkable. The calvarium reveals no suspicious lesions. IMPRESSION: 1. No acute intracranial findings. Electronically signed by: Henrry Packer MD (09/19/2019 11:08 AM) [id number]
[2019-09-19 11:31] LABS: ACETAMIN < 2 mcg/ml (10-30); SALIC 4.3 mg/dL (2.8-20.0)
--- NOTE | 2019-09-19 12:30 | PHYS DOC ---
Past Medical History Past Medical History: Asthma, COPD, Other Additional Past Medical Histor: EMPHYSEMA Past Surgical History: Tubal ligation, Other Smoking Status: Current Every Day Smoker Alcohol Use: None Drug Use: Other General Adult EDM: Chief Complaint: ALTERED MENTAL STATUS HPI: HPI: Patient is a 39 year old female who was brought here by EMS due to confusion. Patient [place] by police [place]. EMS were called, brought her here for evaluation. Upon arrival to ER patient was awake alert but confused. Patient denies any headache, no chest pain, no abdominal pain, no nausea vomiting. Patient denies suicidal ideation, denies homicidal ideation. Review of Systems: Review of Systems: Constitutional: Denies fever or chills. [] Eyes: Denies change in visual acuity. [] HENT: Denies nasal congestion or sore throat. [] Respiratory: Denies cough or shortness of breath. [] Cardiovascular: Denies chest pain or edema. [] GI: Denies abdominal pain, nausea, vomiting, bloody stools or diarrhea. [] : Denies dysuria. [] Musculoskeletal: Denies back pain or joint pain. Positive for neck pain. Integument: Denies rash. Neurologic: Denies headache, focal weakness or sensory changes. Positive for confusion. Endocrine: Denies polyuria or polydipsia. [] Lymphatic: Denies swollen glands. [] Psychiatric: Denies depression or anxiety. [] Heart Score: Risk Factors: Risk Factors: DM, Current or recent (<one month) smoker, HTN, HLP, family history of CAD, obesity. Risk Scores: Score 0 - 3: 2.5% MACE over next 6 weeks - Discharge Home Score 4 - 6: 20.3% MACE over next 6 weeks - Admit for Clinical Observation Score 7 - 10: 72.7% MACE over next 6 weeks - Early Invasive Strategies Allergies: Allergies: Allergies Coded Allergies Type Severity Reaction Last Updated Verified No Known Drug Allergies 06/06/16 No Physical Exam: PE: Constitutional: Well developed, well nourished, no acute distress, non-toxic ap pearance. [] HENT: Normocephalic, atraumatic, bilateral external ears normal, oropharynx moist, no oral exudates, nose normal. [] Eyes: PERRLA, EOMI, conjunctiva normal, no discharge. [] Neck: Normal range of motion, no tenderness, supple, no stridor. [] Cardiovascular:Heart rate regular rhythm, no murmur [] Lungs & Thorax: Bilateral breath sounds clear to auscultation [] Abdomen: Bowel sounds normal, soft, no tenderness, no masses, no pulsatile masses. [] Skin: Warm, dry, no erythema, no rash. [] Back: No tenderness, no CVA tenderness. [] Extremities: No tenderness, no cyanosis, no clubbing, ROM intact, no edema. [] Neurologic: Alert and awake but confused, normal motor function, normal sensory function, no focal deficits noted. [] Psychologic: Affect normal, judgement normal, mood normal. [] Current Patient Data: Labs: Laboratory Tests Test 09/19/19 09:51 09/19/19 09:58 09/19/19 10:05 Glucose (Fingerstick) 164 mg/dL (70-99) H White Blood Count 10.9 x10^3/uL (4.0-11.0) Red Blood Count 4.40 x10^6/uL (3.50-5.40) Hemoglobin 13.6 g/dL (12.0-15.5) Hematocrit 40.6 % (36.0-47.0) Mean Corpuscular Volume 92 fL (79-100) Mean Corpuscular Hemoglobin 31 pg (25-35) Mean Corpuscular Hemoglobin Concent 34 g/dL (31-37) Red Cell Distribution Width 13.3 % (11.5-14.5) Platelet Count 290 x10^3/uL (140-400) Neutrophils (%) (Auto) 75 % (31-73) H Lymphocytes (%) (Auto) 17 % (24-48) L Monocytes (%) (Auto) 6 % (0-9) Eosinophils (%) (Auto) 2 % (0-3) Basophils (%) (Auto) 0 % (0-3) Neutrophils # (Auto) 8.2 x10^3/uL (1.8-7.7) H Lymphocytes # (Auto) 1.9 x10^3/uL (1.0-4.8) Monocytes # (Auto) 0.6 x10^3/uL (0.0-1.1) Eosinophils # (Auto) 0.2 x10^3/uL (0.0-0.7) Basophils # (Auto) 0.0 x10^3/uL (0.0-0.2) Prothrombin Time 13.6 SEC (11.7-14.0) Prothrombin Time INR 1.1 (0.8-1.1) Activated Partial Thromboplast Time 23 SEC (24-38) L Sodium Level 139 mmol/L (136-145) Potassium Level 3.2 mmol/L (3.5-5.1) L Chloride Level 105 mmol/L (98-107) Carbon Dioxide Level 26 mmol/L (21-32) Anion Gap 8 (6-14) Blood Urea Nitrogen 14 mg/dL (7-20) Creatinine 1.1 mg/dL (0.6-1.0) H Estimated GFR (Cockcroft-Gault) 55.3 BUN/Creatinine Ratio 13 (6-20) Glucose Level 152 mg/dL (70-99) H Calcium Level 8.9 mg/dL (8.5-10.1) Magnesium Level 1.7 mg/dL (1.8-2.4) L Total Bilirubin 0.3 mg/dL (0.2-1.0) Aspartate Amino Transferase (AST) 18 U/L (15-37) Alanine Aminotransferase (ALT) 21 U/L (14-59) Alkaline Phosphatase 77 U/L (46-116) Troponin I Quantitative < 0.017 ng/mL (0.000-0.055) Total Protein 7.4 g/dL (6.4-8.2) Albumin 3.4 g/dL (3.4-5.0) Albumin/Globulin Ratio 0.9 (1.0-1.7) L Salicylates Level 4.3 mg/dL (2.8-20.0) Salicylate Last Dose Date Ukn Salicylate Last Dose Time Ukn Acetaminophen Level < 2 mcg/ml (10-30) L Acetaminophen Last Dose Date Ukn Acetaminophen Last Dose Time Ukn Ethyl Alcohol Level < 10 mg/dL (0-10) Urine Collection Type Unknown Urine Color Yellow Urine Clarity Clear Urine pH 6.0 (<5.0-8.0) Urine Specific [place] 1.025 (1.000-1.030) Urine Protein 100 mg/dL (NEG-TRACE) Urine Glucose (UA) Negative mg/dL (NEG) Urine Ketones (Stick) Negative mg/dL (NEG) Urine Blood Negative (NEG) Urine Nitrite Negative (NEG) Urine Bilirubin Negative (NEG) Urine Urobilinogen Dipstick 0.2 mg/dL (0.2 mg/dL) Urine Leukocyte Esterase Negative (NEG) Urine RBC 0 /HPF (0-2) Urine WBC 0 /HPF (0-4) Urine Squamous Epithelial Cells Many /LPF Urine Bacteria Few /HPF (0-FEW) Urine Hyaline Casts Few /HPF Urine Mucus Marked /LPF Urine Opiates Screen Neg (NEG) Urine Methadone Screen Neg (NEG) Urine Barbiturates Neg (NEG) Urine Phencyclidine Screen Neg (NEG) Urine Amphetamine/Methamphetamine Neg (NEG) Urine Benzodiazepines Screen Neg (NEG) Urine Cocaine Screen Neg (NEG) Urine Cannabinoids Screen Neg (NEG) Urine Ethyl Alcohol Neg (NEG) Laboratory Tests 09/19/19 09:58 Laboratory Tests 09/19/19 09:58 Vital Signs: Vital Signs Date Time Temp Pulse Resp B/P (MAP) Pulse Ox O2 Delivery O2 Flow Rate FiO2 09/19/19 10:09 97.8 92 20 104/59 (74) 94 Room Air 97.8 EKG: EKG: ekg was done at 1311, rate of 60 bpm, SINUS RHYTHM, NO STEMI. [] Radiology/Procedures: Radiology/Procedures: [][facility] [address] [place], [place] [id number] IMAGING REPORT Signed PATIENT: KRISTAL WHITNEY ACCOUNT: [id number] : 1980 LOCATION: ER AGE: 39 SEX: F EXAM STATUS: REG ER ORD. PHYSICIAN: GUILLERMO ERWIN DO REASON: passed out while walking, having neck pain PROCEDURE: CT CERVICAL SPINE WO CONTRAST Examination: CT CERVICAL SPINE WO CONTRAST History: Neck pain, syncope while walking Comparison/Correlation: None Findings: Axial images of the cervical spine were obtained without contrast. Sagittal and coronal reformatted images were provided. Reversal of cervical lordosis is present and this may represent normal variant or spasm. Alignment is normal. No fracture or bone destruction. Disc spaces are adequate. Soft tissues are normal. Right paratracheal air cysts are present. Soft tissues of the neck are unremarkable. Early centrilobular emphysematous findings of the lung apices noted. Impression: No fracture or malalignment. Early emphysematous involvement of the lung apices. PQRS Compliance Statement: One or more of the following individualized dose reduction techniques were utilized for this examination: 1. Automated exposure control 2. Adjustment of the mA and/or kV according to patient size 3. Use of iterative reconstruction technique Electronically signed by: Miko Andres MD (09/19/2019 12:44 PM) [id number] DICTATED and SIGNED BY: MIKO ANDRES MD DATE: 09/19/19 1244 [facility] [address] [place] [address] IMAGING REPORT Signed PATIENT: KRISTAL WHITNEY ACCOUNT: [id number] : 1980 LOCATION: ER AGE: 39 SEX: F EXAM STATUS: PRE ER ORD. PHYSICIAN: GUILLERMO ERWIN DO REASON: altered mental status, confused PROCEDURE: CT HEAD WO CONTRAST EXAM: CT HEAD WITHOUT CONTRAST. HISTORY: Altered mental status. TECHNIQUE: Computed tomography of the head was performed without intravenous contrast. One or more of the following individualized dose reduction techniques were utilized for this examination: 1. Automated exposure control. 2. Adjustment of the mA and/or kV according to patient size. 3. Use of iterative reconstruction technique. COMPARISON: None. FINDINGS: There is no intracranial hemorrhage. Guzmán-white differentiation is preserved. The ventricles are normal in size and position. The visualized paranasal sinuses appear clear. The orbits are unremarkable. The temporal bones are unremarkable. The calvarium reveals no suspicious lesions. IMPRESSION: 1. No acute intracranial findings. Electronically signed by: Henrry Packer MD (09/19/2019 11:08 AM) [id number] DICTATED and SIGNED BY: TIM PACKER MD DATE: 09/19/19 1108 Course & Med Decision Making: Course & Med Decision Making Pertinent Labs and Imaging studies reviewed. (See chart for details) Patient is a 39-year-old female who was evaluated here in the ER due to confusion. Upon arrival to ER, patient was awake alert but confused. Now patient is more oriented. Patient says she was walking [place] the bus station, about 2 miles away from her home, She knows she was on the ground. Patient denied headache, no chest pain before it happened. Patient complained of lower neck pain. Patient denies any back pain, no extremity pain. Patient says she passed out like this last March, when she fell down and broke her right ankle. Patient was brought to [facility] where she was evaluated then. Patient is not on any medication currently. She denied any history of seizure disorder. Suspected that patient may have seizure disorder. She wants to go home today and follow up with a doctor in [facility] where she lives. She will need to follow up with a neurologist for further evaluation and treatment, advised not to operate machinary or drive a vehicle. Dragon Disclaimer: Dragon Disclaimer: This electronic medical record was generated, in whole or in part, using a voice recognition dictation system. Departure Departure Impression: Primary Impression: Syncope and collapse Disposition: 01 HOME, SELF-CARE Condition: STABLE Referrals: NO PCP (PCP) follow up with your family doctor for a referral to a neurologist for further evaluation and treatment. DO NOT OPERATE MACHINE, DO NOT DRIVE A VEHICLE UNTIL YOU ARE EVALUATED BY NEUROLOGIST. Patient Instructions: Syncope Additional Instructions: Thank you for visiting our Emergency Department. We appreciate you trusting us with your care. If any additional problems come up don't hesitate to return to visit us. Please follow up with your primary care provider so they can plan additional care if needed and know about the problem that you had. If symptoms worsen come back to the Emergency Department. Any concerning symptoms that start such as chest pain, shortness of air, weakness or numbness on one side of the body, running high fevers or any other concerning symptoms return to the ER. GUILLERMO ERWIN DO Sep 19, 2019 12:30
--- NOTE | 2019-09-19 12:47 | RAD ---
Examination: CT CERVICAL SPINE WO CONTRAST History: Neck pain, syncope while walking Comparison/Correlation: None Findings: Axial images of the cervical spine were obtained without contrast. Sagittal and coronal reformatted images were provided. Reversal of cervical lordosis is present and this may represent normal variant or spasm. Alignment is normal. No fracture or bone destruction. Disc spaces are adequate. Soft tissues are normal. Right paratracheal air cysts are present. Soft tissues of the neck are unremarkable. Early centrilobular emphysematous findings of the lung apices noted. Impression: No fracture or malalignment. Early emphysematous involvement of the lung apices. PQRS Compliance Statement: One or more of the following individualized dose reduction techniques were utilized for this examination: 1. Automated exposure control 2. Adjustment of the mA and/or kV according to patient size 3. Use of iterative reconstruction technique Electronically signed by: Miko Ybarra MD (09/19/2019 12:44 PM) [id number]
[2019-09-19 13:00] VITALS: BP 118/72
--- NOTE | 2019-09-19 14:45 | EKG ---
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
== END 2019-09-19 13:55 | disposition home or self-care (01) ==
LOC: ER 09:47
DX: R55 Syncope and collapse (principal); R41.0 Disorientation, unspecified; M54.2 Cervicalgia; R51 Headache; F17.200 Nicotine dependence, unspecified, uncomplicated; J44.9 Chronic obstructive pulmonary disease, unspecified
CPT/HCPCS: 36415; 70450; 72125; 80053; 80307; 80329; 81001; 82962; 83735; 84484; 85025; 85610; 85730; 93005; 99285; G0480

== ENCOUNTER 2019-11-28 19:20 | Emergency (ER) | payer SELFPAY ==
[~2019-11-28] VITALS: Ht 167.6 cm; Wt 81.8 kg
[2019-11-28 19:25] VITALS: BP 114/70
--- NOTE | 2019-11-28 19:49 | PHYS DOC ---
Past Medical History Past Medical History: Asthma, COPD, Other Additional Past Medical Histor: EMPHYSEMA Past Surgical History: Tubal ligation, Other Smoking Status: Current Every Day Smoker Alcohol Use: None Drug Use: Other General Adult EDM: Chief Complaint: ALTERED MENTAL STATUS HPI: HPI: Patient is a 39 year old female who presents via EMS with report of altered mental status. EMS states that patient was walking around in circles at the side of the road. Upon arrival, patient denies any complaints and states that she does not want to be seen and had just been seen at [facility] for the same thing and was discharged home. Patient refusing care at this time and is alert and oriented x3. [] Review of Systems: Review of Systems: Constitutional: Denies fever or chills. [] Respiratory: Denies cough or shortness of breath. [] Cardiovascular: Denies chest pain or edema. [] GI: Denies abdominal pain, nausea, vomiting or diarrhea. [] Neurologic: Denies headache, focal weakness or sensory changes. [] Heart Score: Risk Factors: Risk Factors: DM, Current or recent (<one month) smoker, HTN, HLP, family history of CAD, obesity. Risk Scores: Score 0 - 3: 2.5% MACE over next 6 weeks - Discharge Home Score 4 - 6: 20.3% MACE over next 6 weeks - Admit for Clinical Observation Score 7 - 10: 72.7% MACE over next 6 weeks - Early Invasive Strategies Allergies: Allergies: Allergies Coded Allergies Type Severity Reaction Last Updated Verified No Known Drug Allergies 06/06/16 No Physical Exam: PE: Constitutional: Well developed, well nourished, no acute distress, non-toxic appearance. [] Neck: Normal range of motion, no tenderness, supple, no stridor. [] Cardiovascular: Regular rate and rhythm [] Lungs & Thorax: Bilateral breath sounds clear to auscultation [] Abdomen: Bowel sounds normal, soft, no tenderness. [] Skin: Warm, dry, no erythema, no rash. [] Extremities: No tenderness, no cyanosis, no clubbing, ROM intact, no edema. [] Neurologic: Alert and oriented X 3, no focal deficits noted. [] EKG: EKG: [] Radiology/Procedures: Radiology/Procedures: [] Course & Med Decision Making: Course & Med Decision Making Pertinent Labs and Imaging studies reviewed. (See chart for details) [] Mima Disclaimer: Mima Disclaimer: This electronic medical record was generated, in whole or in part, using a voice recognition dictation system. Departure Departure Impression: Primary Impression: Drug use Disposition: AGAINST MEDICAL ADVICE Condition: STABLE Referrals: NO PCP (PCP) Justicifation of Admission Dx: Justifications for Admission: Justification of Admission Dx: Comment: (Not applicable) CHANCE WANG Jr. DO Nov 28, 2019 19:49
== END 2019-11-28 19:40 | disposition left against medical advice (07) ==
LOC: ER 19:20
DX: R41.82 Altered mental status, unspecified (principal); F19.90 Other psychoactive substance use, unspecified, uncomplicated; J44.9 Chronic obstructive pulmonary disease, unspecified; F17.200 Nicotine dependence, unspecified, uncomplicated; Z98.51 Tubal ligation status
CPT/HCPCS: 99283

== ENCOUNTER 2019-11-28 20:15 | Emergency (ER) | payer SELFPAY ==
[~2019-11-28] VITALS: Ht 170.2 cm; Wt 81.8 kg
[2019-11-28 20:20] VITALS: BP 103/63
--- NOTE | 2019-11-28 20:50 | PHYS DOC ---
Past Medical History Past Medical History: Asthma, COPD, Other Additional Past Medical Histor: EMPHYSEMA Past Surgical History: Tubal ligation, Other Smoking Status: Current Every Day Smoker Alcohol Use: None Drug Use: Other General Adult EDM: Chief Complaint: ALTERED MENTAL STATUS HPI: HPI: Patient is a 39 year old female who arrives via EMS once again after reportedly being witnessed by hospital security walking across the parking lot smoking an unidentified large cigarette appearing object. Patient then reportedly had bent over and started gagging. Hospital security states that he went over to check on the patient and patient would not verbally respond back to them. At that point, EMS was again called and patient was brought back into the emergency room. Patient would not indicate what she had been smoking. She states that she still does not want to be seen in the emergency room and is still oriented x3. She denies any nausea or vomiting. Patient denies having smoked any drugs. Patient agreed to vital signs but refusing any work-up. Patient denies any suicidal or homicidal ideations. [] Review of Systems: Review of Systems: Constitutional: Denies fever or chills. [] Respiratory: Denies cough or shortness of breath. [] Cardiovascular: Denies chest pain or edema. [] GI: Denies abdominal pain, nausea, vomiting or diarrhea. [] Neurologic: Denies headache, focal weakness or sensory changes. [] Psychiatric: Denies depression or anxiety. Denies suicidal ideation. [] Heart Score: Risk Factors: Risk Factors: DM, Current or recent (<one month) smoker, HTN, HLP, family history of CAD, obesity. Risk Scores: Score 0 - 3: 2.5% MACE over next 6 weeks - Discharge Home Score 4 - 6: 20.3% MACE over next 6 weeks - Admit for Clinical Observation Score 7 - 10: 72.7% MACE over next 6 weeks - Early Invasive Strategies Allergies: Allergies: Allergies Coded Allergies Type Severity Reaction Last Updated Verified No Known Drug Allergies 06/06/16 No Physical Exam: PE: Constitutional: Well developed, well nourished, no acute distress, non-toxic appearance. [] HENT: Normocephalic, atraumatic, bilateral external ears normal, oropharynx moist, no oral exudates, nose normal. [] Eyes: PERRLA, EOMI, conjunctiva normal, no discharge. [] Neck: Normal range of motion, no tenderness, supple, no stridor. [] Cardiovascular: Regular rate and rhythm [] Lungs & Thorax: Bilateral breath sounds clear to auscultation [] Abdomen: Bowel sounds normal, soft, no tenderness. [] Skin: Warm, dry, no erythema, no rash. [] Extremities: No tenderness, no cyanosis, no clubbing, ROM intact, no edema. [] Neurologic: Appears somnolent but readily arousable to verbal stimuli. Alert and oriented X 3, no focal deficits noted. [] Psychologic: Affect is flattened, mood normal. [] EKG: EKG: [] Radiology/Procedures: Radiology/Procedures: [] Course & Med Decision Making: Course & Med Decision Making Pertinent Labs and Imaging studies reviewed. (See chart for details) Patient moved to room upon arrival was evaluated by ER medical staff and patient encouraged to stay and allow us to do work-up. Patient continues to indicate that she does not want to be treated in the emergency room and wants to be discharged. Patient did call her daughter who presented to the emergency room to bring her home. Daughter has been informed of concerns of staff and she agrees to still bring patient home. Zindigo Disclaimer: Zindigo Disclaimer: This electronic medical record was generated, in whole or in part, using a voice recognition dictation system. Departure Departure Impression: Primary Impression: Drug use Disposition: AGAINST MEDICAL ADVICE Condition: STABLE Referrals: NO PCP (PCP) Justicifation of Admission Dx: Justifications for Admission: Justification of Admission Dx: Comment: (Not applicable) CHANCE WANG Jr. DO Nov 28, 2019 20:50
== END 2019-11-28 20:25 | disposition left against medical advice (07) ==
LOC: ER 20:15
DX: F19.90 Other psychoactive substance use, unspecified, uncomplicated (principal); J44.9 Chronic obstructive pulmonary disease, unspecified; F17.210 Nicotine dependence, cigarettes, uncomplicated; Z98.51 Tubal ligation status
CPT/HCPCS: 99283

== ENCOUNTER 2019-11-28 21:55 | Emergency (ER) | payer SELFPAY ==
[~2019-11-28] VITALS: Ht 170.2 cm; Wt 95.5 kg
[2019-11-28 22:15] LABS: BILIRUBIN,URINE SMALL (NEG); CLARITY,URINE CLEAR; COLOR,URINE AMBER; NITRITE,URINE NEGATIVE (NEG); PH,URINE 5.5 (<5.0-8.0); PROTEIN,URINE 100 mg/dL (NEG-TRACE)
[2019-11-28 22:19] LABS: BASO % 1 % (0-3); EOS # 0.1 x10^3/uL (0.0-0.7); EOS % 1 % (0-3); HEMATOCRIT 36.4 % (36.0-47.0); HEMOGLOBIN 12.9 g/dL (12.0-15.5); LYMPH % 30 % (24-48); MEAN CORPUSCULAR HEMOGLOBIN 33 pg (25-35); MEAN CORPUSCULAR HGB CONC 35 g/dL (31-37); MEAN CORPUSCULAR VOLUME 92 fL (79-100); MONO # 0.7 x10^3/uL (0.0-1.1); MONO % 10 % (0-9); NEUT % 59 % (31-73); PLATELET COUNT 301 x10^3/uL (140-400); RED BLOOD COUNT 3.95 x10^6/uL (3.50-5.40); RED CELL DISTRIBUTION WIDTH 13.4 % (11.5-14.5); WHITE BLOOD COUNT 6.8 x10^3/uL (4.0-11.0)
[2019-11-28 22:22] LABS: BARBITURATES NEG (NEG); BENZODIAZEPINES NEG (NEG); CANNABINOIDS NEG (NEG); COCAINE NEG (NEG); METHADONE NEG (NEG); OPIATES NEG (NEG); PHENCYCLIDINE NEG (NEG)
[2019-11-28 22:25] LABS: AMPHETAMINE/METHAMPHETAMINE NEG (NEG); BACTERIA,URINE FEW /HPF (0-FEW); GRANULAR CASTS,URINE FEW /HPF; HYALINE CASTS, URINE MODERATE /HPF; SQUAMOUS EPITHELIAL CELL,UR MOD /LPF
[2019-11-28 22:34] LABS: CALCIUM 8.9 mg/dL (8.5-10.1); CREATININE 1.2 mg/dL (0.6-1.0); POTASSIUM 3.7 mmol/L (3.5-5.1)
[2019-11-28 22:39] LABS: ALBUMIN 3.5 g/dL (3.4-5.0); ALBUMIN/GLOBULIN RATIO 0.9 (1.0-1.7); MAGNESIUM 1.9 mg/dL (1.8-2.4); TOTAL BILIRUBIN 0.2 mg/dL (0.2-1.0); TOTAL PROTEIN 7.2 g/dL (6.4-8.2)
--- NOTE | 2019-11-29 02:16 | PHYS DOC ---
Past Medical History Past Medical History: No Pertinent History Additional Past Medical Histor: EMPHYSEMA Past Surgical History: Tubal ligation, Other Smoking Status: Current Some Day Smoker Alcohol Use: Occasionally Drug Use: Other Social History Narrative: K2 General Adult EDM: Chief Complaint: ALTERED MENTAL STATUS HPI: HPI: Patient is a 39 year old female who arrives for third time via EMS after reportedly being found unresponsive outside. EMS indicates that patient has not been answering questions this time around. Additional history is limited at this time. [] Review of Systems: Review of Systems: Constitutional: Denies fever or chills. [] Respiratory: No obvious shortness of breath. [] GI: No reported vomiting. [] Neurologic: Positive mental status changes. [] Unable to fully assess review of systems due to patient mental state Heart Score: Risk Factors: Risk Factors: DM, Current or recent (<one month) smoker, HTN, HLP, family history of CAD, obesity. Risk Scores: Score 0 - 3: 2.5% MACE over next 6 weeks - Discharge Home Score 4 - 6: 20.3% MACE over next 6 weeks - Admit for Clinical Observation Score 7 - 10: 72.7% MACE over next 6 weeks - Early Invasive Strategies Allergies: Allergies: Allergies Coded Allergies Type Severity Reaction Last Updated Verified No Known Drug Allergies 06/06/16 No Physical Exam: PE: Constitutional: Well developed, well nourished, no acute distress, non-toxic appearance. [] HENT: Normocephalic, atraumatic, bilateral external ears normal, oropharynx moist, no oral exudates, nose normal. [] Eyes: PERRLA, EOMI, conjunctiva normal, no discharge. [] Neck: Normal range of motion, no tenderness, supple, no stridor. [] Cardiovascular: Regular rate and rhythm [] Lungs & Thorax: Bilateral breath sounds clear to auscultation [] Abdomen: Bowel sounds normal, soft, no tenderness. [] Skin: Warm, dry, no erythema, no rash. [] Extremities: No tenderness, no cyanosis, no clubbing, ROM intact, no edema. [] Neurologic: Lethargic but arousable to both painful and verbal stimuli, no focal deficits noted. [] Current Patient Data: Labs: Laboratory Tests Test 11/28/19 22:05 11/28/19 22:08 Urine Collection Type Unknown Urine Color Angela Urine Clarity Clear Urine pH 5.5 (<5.0-8.0) Urine Specific [place] >=1.030 (1.000-1.030) Urine Protein 100 mg/dL (NEG-TRACE) Urine Glucose (UA) Negative mg/dL (NEG) Urine Ketones (Stick) Negative mg/dL (NEG) Urine Blood Negative (NEG) Urine Nitrite Negative (NEG) Urine Bilirubin Small (NEG) Urine Urobilinogen Dipstick 1.0 mg/dL (0.2 mg/dL) Urine Leukocyte Esterase Negative (NEG) Urine RBC 1-2 /HPF (0-2) Urine WBC 1-4 /HPF (0-4) Urine Squamous Epithelial Cells Mod /LPF Urine Bacteria Few /HPF (0-FEW) Urine Hyaline Casts Moderate /HPF Urine Granular Casts Few /HPF Urine Mucus Marked /LPF Urine Opiates Screen Neg (NEG) Urine Methadone Screen Neg (NEG) Urine Barbiturates Neg (NEG) Urine Phencyclidine Screen Neg (NEG) Urine Amphetamine/Methamphetamine Neg (NEG) Urine Benzodiazepines Screen Neg (NEG) Urine Cocaine Screen Neg (NEG) Urine Cannabinoids Screen Neg (NEG) Urine Ethyl Alcohol Neg (NEG) White Blood Count 6.8 x10^3/uL (4.0-11.0) Red Blood Count 3.95 x10^6/uL (3.50-5.40) Hemoglobin 12.9 g/dL (12.0-15.5) Hematocrit 36.4 % (36.0-47.0) Mean Corpuscular Volume 92 fL (79-100) Mean Corpuscular Hemoglobin 33 pg (25-35) Mean Corpuscular Hemoglobin Concent 35 g/dL (31-37) Red Cell Distribution Width 13.4 % (11.5-14.5) Platelet Count 301 x10^3/uL (140-400) Neutrophils (%) (Auto) 59 % (31-73) Lymphocytes (%) (Auto) 30 % (24-48) Monocytes (%) (Auto) 10 % (0-9) H Eosinophils (%) (Auto) 1 % (0-3) Basophils (%) (Auto) 1 % (0-3) Neutrophils # (Auto) 4.0 x10^3/uL (1.8-7.7) Lymphocytes # (Auto) 2.0 x10^3/uL (1.0-4.8) Monocytes # (Auto) 0.7 x10^3/uL (0.0-1.1) Eosinophils # (Auto) 0.1 x10^3/uL (0.0-0.7) Basophils # (Auto) 0.0 x10^3/uL (0.0-0.2) Sodium Level 139 mmol/L (136-145) Potassium Level 3.7 mmol/L (3.5-5.1) Chloride Level 105 mmol/L (98-107) Carbon Dioxide Level 23 mmol/L (21-32) Anion Gap 11 (6-14) Blood Urea Nitrogen 19 mg/dL (7-20) Creatinine 1.2 mg/dL (0.6-1.0) H Estimated GFR (Cockcroft-Gault) 50.0 BUN/Creatinine Ratio 16 (6-20) Glucose Level 94 mg/dL (70-99) Calcium Level 8.9 mg/dL (8.5-10.1) Magnesium Level 1.9 mg/dL (1.8-2.4) Total Bilirubin 0.2 mg/dL (0.2-1.0) Aspartate Amino Transferase (AST) 21 U/L (15-37) Alanine Aminotransferase (ALT) 20 U/L (14-59) Alkaline Phosphatase 71 U/L (46-116) Troponin I Quantitative < 0.017 ng/mL (0.000-0.055) MC-Gut-V-Type Natriuretic Peptide 35 pg/mL (0-124) Total Protein 7.2 g/dL (6.4-8.2) Albumin 3.5 g/dL (3.4-5.0) Albumin/Globulin Ratio 0.9 (1.0-1.7) L Laboratory Tests 11/28/19 22:08 Laboratory Tests 11/28/19 22:08 Vital Signs: Vital Signs Date Time Temp Pulse Resp B/P (MAP) Pulse Ox O2 Delivery O2 Flow Rate FiO2 11/28/19 21:55 99.7 78 18 104/74 (84) 94 Room Air 99.7 EKG: EKG: [] Radiology/Procedures: Radiology/Procedures: [] Course & Med Decision Making: Course & Med Decision Making Pertinent Labs and Imaging studies reviewed. (See chart for details) After work-up completed, patient has come around and PET team has come to assess patient. Patient has been cleared by PET team for discharge home. Dragdipika Disclaimer: Mima Disclaimer: This electronic medical record was generated, in whole or in part, using a voice recognition dictation system. Departure Departure Impression: Primary Impression: Drug abuse Disposition: HOME, SELF-CARE Condition: STABLE Referrals: NO PCP (PCP) Patient Instructions: Drug Abuse, FAQs Justicifation of Admission Dx: Justifications for Admission: Justification of Admission Dx: Comment: CHANCE WANG Jr. DO Nov 29, 2019 02:16
[2019-11-29 04:57] VITALS: BP 95/69
== END 2019-11-29 05:14 | disposition home or self-care (01) ==
LOC: ER 21:55
DX: F19.90 Other psychoactive substance use, unspecified, uncomplicated (principal); R41.82 Altered mental status, unspecified; R11.10 Vomiting, unspecified; F17.200 Nicotine dependence, unspecified, uncomplicated; Z98.51 Tubal ligation status
CPT/HCPCS: 36415; 80053; 80307; 81001; 83735; 83880; 84484; 85025; 99285